=== PATIENT | male | born 1975 | race Caucasian/White ===

== ENCOUNTER 2017-06-16 08:13 | Day surgery (SDC) | payer BC, OTHER ==
[~2017-06-16 08:13] MED LIST: Lactated Ringers 1,000 ML IV SCH; Midazolam 1 MG/ML 2 ML SDV ONE; Ondansetron 4 MG/2 ML SDV ONE; Propofol 200 MG/20 ML SDV ONE; fentaNYL 100 MCG/2 ML SDV ONE
--- NOTE | 2017-06-16 08:48 | PCM.PREANE ---
Preanesthetic Assessment - Anesthesia/Transfusion/Family Hx Anesthesia History: Prior Anesthesia Without Reaction Family History of Anesthesia Reaction: No Transfusion History: No Prior Transfusion(s) - Review of Systems General: No Symptoms Pulmonary: No Symptoms Cardiovascular: No Symptoms Gastrointestinal: No Symptoms Neurological: No Symptoms Other: Reports: None - Physical Assessment NPO Status Date: 06/15/17 O2 Sat by Pulse Oximetry: 97 Respiratory Rate: 16 Vital Signs: Last Vital Signs Temp 36.6 C 06/16/17 08:36 Pulse 69 06/16/17 08:36 Resp 16 06/16/17 08:36 BP 141/85 H 06/16/17 08:36 Pulse Ox 97 06/16/17 08:36 Height: 1.8 m Weight: 102.512 kg ASA Class: 1 Mental Status: Alert & Oriented x3 Dentition: Reports: Normal Dentition ROM/Head Extension: Full Lungs: Clear to Auscultation, Normal Respiratory Effort Cardiovascular: Regular Rate, Regular Rhythm - Allergies Allergies/Adverse Reactions: Allergies Allergy/AdvReac Type Severity Reaction Status Date / Time Penicillins Allergy Anaphylactic Verified 06/13/17 15:35 Shock - Acknowledgements Anesthesia Type Planned: MAC Pt an Appropriate Candidate for the Planned Anesthesia: Yes Alternatives and Risks of Anesthesia Discussed w Pt/Guardian: Yes Pt/Guardian Understands and Agrees with Anesthesia Plan: Yes PreAnesthesia Questionnaire Gastrointestinal History: Reports: None Genitourinary History: Reports: None Musculoskeletal History: Reports: Fracture Other Musculoskeletal History: hx fx toes, foot surgery Endocrine/Metabolic History: Reports: Obesity/BMI 30+ - Past Surgical History Head Surgeries/Procedures: Reports: None GI Surgical History: Reports: Appendectomy Male Surgical History: Reports: Vasectomy Other Male Surgeries/Procedures: hx of vasovasostomy - SUBSTANCE USE Smoking Status *Q: Never Smoker Recreational Drug Use History: No - HOME MEDS Home Medications: Home Meds . [No Known Home Meds] 06/13/17 [History] - CURRENT (IN HOUSE) MEDS Current Meds: Current Medications Lactated Ringer's (Ringers, Lactated) 1,000 mls @ 125 mls/hr IV ASDIRECTED JENNIFER Last Admin: 06/16/17 08:34 Dose: 125 mls/hr Discontinued Medications Fentanyl (Sublimaze) Confirm Administered Dose 100 mcg .ROUTE .STK-MED ONE Stop: 06/16/17 07:27 Lidocaine HCl (Xylocaine-Mpf 1%) Confirm Administered Dose 5 ml .ROUTE .STK-MED ONE Stop: 06/16/17 07:28 Midazolam HCl (Versed 1 Mg/Ml) Confirm Administered Dose 2 mg .ROUTE .STK-MED ONE Stop: 06/16/17 07:28 Ondansetron HCl (Zofran) Confirm Administered Dose 4 mg .ROUTE .STK-MED ONE Stop: 06/16/17 07:28 Propofol (Diprivan 20 Ml) Confirm Administered Dose 200 mg .ROUTE .STK-MED ONE Stop: 06/16/17 07:27
[2017-06-16] MEDS ORDERED: Ondansetron 4 MG/2 ML SDV ONE (08:49)
[2017-06-16] MEDS ORDERED: Midazolam 1 MG/ML 2 ML SDV ONE (08:50)
[2017-06-16] MEDS ORDERED: fentaNYL 100 MCG/2 ML SDV ONE (08:50)
[2017-06-16] MEDS ORDERED: Propofol 200 MG/20 ML SDV ONE (08:50)
[2017-06-16] MEDS ORDERED: Lidocaine 1% 20 ML MDV ONE (09:55)
[2017-06-16] MEDS ORDERED: Bupivacaine 0.5% 10 ML SDV ONE (09:55)
[2017-06-16] MEDS ORDERED: Morphine 10 MG/ML Syringe IVPUSH PRN (11:38)
[2017-06-16] MEDS ORDERED: Acetaminophen/HYDROcodone 325-5 MG Tab PO PRN (11:38)
--- NOTE | 2017-06-16 11:40 | PCM.OPNOTE ---
- General Post-Op/Procedure Note Date of Surgery/Procedure: 06/16/17 Operative Procedure(s): Excision 1 cm right posterior scalp mass. Excision 3 cm right anterolateral chest wall mass. Pre Op Diagnosis: Right scalp mass. Right chest wall mass. Anesthesia Technique: General LMA (ASA I) Primary Surgeon: Stefan Matthew Humid System Operator: Raquel Cortes Fluid Replacement, Intraop: 1,100 EBL in mLs: 5 Condition: Good Free Text/Narrative:: Dictation [id number]
[2017-06-16] MEDS ORDERED: Lactated Ringers 1,000 ML IV SCH (11:45)
--- NOTE | 2017-06-16 12:15 | PCM48HPAN ---
Post Anesthesia Note - EVALUATION WITHIN 48HRS OF ANESTHETIC Vital Signs in Normal Range: Yes Patient Participated in Evaluation: Yes Respiratory Function Stable: Yes Airway Patent: Yes Cardiovascular Function Stable: Yes Hydration Status Stable: Yes Pain Control Satisfactory: Yes Nausea and Vomiting Control Satisfactory: Yes Mental Status Recovered: Yes
--- NOTE | 2017-06-16 12:15 | PCM.POSTAN ---
POST ANESTHESIA ASSESSMENT - MENTAL STATUS Mental Status: Alert, Oriented - RESPIRATORY Respiratory Status: Respiratory Rate WNL, Airway Patent, O2 Saturation Stable - CARDIOVASCULAR CV Status: Pulse Rate WNL, Blood Pressure Stable - GASTROINTESTINAL GI Status: No Symptoms - PAIN Pain Score: 0 - POST OP HYDRATION Hydration Status: Adequate & Stable
[2017-06-16 13:06] VITALS: BP 141/85
--- NOTE | 2017-06-16 18:00 | OR ---
SURGEON: Stefan Matthew M.D. DATE OF PROCEDURE: 06/16/2017 OPERATION PERFORMED: 1. Excision of right posterolateral 1 cm scalp mass. 2. Excision of right anterolateral 3 cm chest wall mass. 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 ANESTHESIA: General LMA. ASA CLASSIFICATION: I. PREOPERATIVE DIAGNOSES: 1. Symptomatic right posterior scalp mass. 2. Enlarging right chest wall mass. ESTIMATED BLOOD LOSS: 5 mL. INTRAOPERATIVE FLUID REPLACEMENT: 1100 mL of crystalloid. DESCRIPTION OF PROCEDURE: The patient was taken to the operating room and placed on the beanbag in the supine position. Time-out was called for appropriate identification of the patient and procedure. The surgical site had been marked prior to the patient entering the operating room. Following satisfactory attainment of general anesthesia and placement of an LMA, the patient was positioned in the left lateral decubitus position. Care was taken to pad all bony prominences. The right posterior scalp was prepped with Betadine solution. Sterile drapes were applied. The skin incision was made in an elliptical fashion around the mass. Using electrocautery the mass in question was easily removed. Bleeding sites were electrocoagulated. The incision was closed with running locked 3-0 nylon. Our attention was now turned to the right anterolateral chest wall. Gown and gloves were changed by the operating surgeon as well as gloves by all members of the operating team. The right anterior chest was then prepped with DuraPrep solution. Sterile drapes were applied. The skin overlying the mass was infiltrated with 1% Xylocaine. The skin incision was made directly over the mass and using electrocautery, deepened down to the mass which was easily removed. Clinically, this had the appearance of a lipoma. Bleeding sites were electrocoagulated. The incision was then closed in two layers approximating the subcutaneous tissue with 3-0 Polysorb and the skin with subcuticular 4-0 Monocryl reinforced with Steri-Strips. Sterile Tegaderm pad was placed as a dressing for the chest wall lesion. The scalp lesion was dressed with antibiotic ointment. Sponge, needle, and instrument counts for both procedures were correct. Following emergence from anesthesia and extubation, the patient was taken to recovery room in stable condition. [place] / LIANNA /[id number]
== END 2017-06-16 13:03 | disposition home or self-care (01) ==
LOC: MW.SDS 08:13
PROVIDERS: ATTEND Surgery
DX: D17.1 Benign lipomatous neoplasm of skin and subcutaneous tissue of trunk (principal); L72.11 Pilar cyst; Z88.0 Allergy status to penicillin; Z90.49 Acquired absence of other specified parts of digestive tract; Z98.890 Other specified postprocedural states; Z98.52 Vasectomy status
CPT/HCPCS: 11403; 11421; 88304; J2250; J2405; J3010; J7120; 00300; J2704